=== PATIENT | male | born 1960 | race Caucasian/White ===

== ENCOUNTER 2017-01-02 08:10 | Inpatient (IN) | payer BC ==
[~2017-01-02 08:10] MED LIST: MORPHINE SULFATE 15 MG TABLET.SA PO PRN; ROPIVACAINE HCL/PF 100 MG, EPINEPHrine 0.2 MG, KETOROLAC TROMETHAMINE 30 MG in NORMAL S... IJ PRN; TRANEXAMIC ACID 1,000 MG in NORMAL SALINE 100 ML IV PRN; ceFAZolin SODIUM 1 GM VIAL IV PRN
[2017-01-02] MEDS: RINGER'S SOLUTION,LACTATED 1,000 ML IV PRN ×2 (08:30→19:32)
[2017-01-02] MEDS ORDERED: RINGER'S SOLUTION,LACTATED 1,000 ML IV ONE (10:55)
--- NOTE | 2017-01-02 10:58 | PREOP NOTE ---
Preoperative Progress Note - Preoperative Changes Changes to Preop Condition?: No Changes
[2017-01-02] MEDS ORDERED: ceFAZolin SODIUM 1 GM VIAL IV ONE (11:15)
--- NOTE | 2017-01-02 13:02 | POSTOP NO ---
Date of Surgery: 01/02/17 Anesthesia: Spinal, local Patient Tolerated the Procedure: Well Post Operative Diagnosis/Procedures: Crankshaft Straightener: Mingo Sapp PA-C Post-operative Diagnosis: Right hip degenerative joint disease Finding: Above Procedure: Right total hip arthroplasty Estimated Blood Loss: 100 ml Specimens: Bone for disposal
[2017-01-02] MEDS ORDERED: ZOLPIDEM TARTRATE 5 MG TABLET PO PRN (13:04)
[2017-01-02] MEDS ORDERED: ONDANSETRON HCL/PF 2 MG/ML VIAL IV PRN (13:04)
[2017-01-02] MEDS ORDERED: HYDROmorphone HCL 1 MG/ML DISP.SYRIN IV PRN (13:04)
[2017-01-02] MEDS ORDERED: DEXTROSE 5%-LACTATED RINGERS 1,000 ML IV PRN (13:04)
[2017-01-02] MEDS ORDERED: ACETAMINOPHEN 500 MG TABLET PO PRN (13:04)
[2017-01-02] MEDS ORDERED: MAGNESIUM HYDROXIDE 30 ML UDC PO PRN (13:04)
[2017-01-02] MEDS ORDERED: MAG HYDROX/ALUMINUM HYD/SIMETH 30 ML UDC PO PRN (13:04)
[2017-01-02] MEDS ORDERED: PROMETHAZINE HCL 5 MG in DEXTROSE 5 % IN WATER 50 ML IV PRN ×2 (13:04)
[2017-01-02] MEDS ORDERED: diphenhydrAMINE HCL 50 MG/ML VIAL IV PRN (13:04)
--- NOTE | 2017-01-02 13:04 | OR ---
Operative Report - Dictated Report Narrative: Date: 01/02/2017 Preoperative diagnosis: Right hip degenerative joint disease. Postoperative diagnosis: Right hip degenerative joint disease. Procedure: Right Total hip arthroplasty. Surgeon: Issac Meek M.D. Lan/Wan Engineer: Mingo Sapp PA-C Anesthesia: Spinal and local periarticular joint injection. Complications: None Specimens: Bone for disposal. Estimated blood loss: 100 milliliters. Retained implants: Depuy [place] size 5 femoral stem high offset. Size 58 millimeter ouside diameter 3-hole Comstock Gription acetabular cup. 58 millimeter outside by 40 millimeter inside diameter highly cross-linked acetabular liner. 40 millimeter diameter +12 millimeter cobalt chromium femoral head. Cancellous 6.5mm screw 30 millimeter length Indications: Mr. Graham is a 56-year-old gentleman who has had long-standing right hip pain and arthrosis. This patient was followed in my clinic for period of time with significant complaints of right hip pain consistent with arthritic changes. He failed conservative measures including but not limited to activity modification, passage of time, medications, and other conservative measures. Patient wished to proceed with surgical treatment. The risks, benefits, and alternatives were discussed in clinic. The risks of , blood clots, bleeding, infection, nerve/tendon blood vessel/ injury, malposition of components, dislocation and/or instability of joint, intraoperative fracture, postoperative limited range of motion, persistent pain, failure of components, and need for additional procedures. Patient wished to proceed. Consent was obtained after answering all questions. Procedure: After marking the correct extremity on the floor, the patient was taken to the operating room. A timeout was performed. IV antibiotics consisting of Ancef were administered prior to the procedure. A spinal anesthetic was induced by anesthesia. A Anaya catheter was inserted. The patient was then transitioned to a lateral position on a well-padded pegboard. An axillary roll was placed. The head was in neutral position. The non- operative down leg was well-padded with SCD and LYNETTE hose in place. The arms were supported and padded to protect from any undue pressure on the bony prominences and nerves. A well-padded anterior and posterior pelvic and chest posts were secured in order to maintain a stable position of the pelvis. This was placed so that the pelvis was perpendicular to the floor. The body was in line with the pelvis. Once it was felt that we had protected all the bony prominences and the patient was well secured with a safety belt as well, the leg was pre-scrubbed with alcohol, prepped and draped in a standard sterile fashion. A standard anterior lateral hip incision was marked out over the greater trochanter. Ioban drapes were then placed. The skin incision was then made. Sharp dissection with a scalpel utilizing cautery for hemostasis was carried out down to the gluteus and iliotibial band fascia. This was split in line with the skin incision. The greater trochanter bursa was excised. The anterior and posterior margins of the abductor tendon were identified. The anterior 1/2-1/3 of the tendon was tagged and reflected off the greater trochanter leaving a sleeve of tendon for repair at the completion of the case. This exposed the underlying hip joint capsule. A limb length stitch was placed in the skin and referencedd off a jimena on the greater trochanter for evaluation of intraoperative limb lengths. An inverted T-type capsulotomy was made extending this up to the brim of the acetabulum. Using Homans to assist with elevation of the soft tissues off the anterior, superior, and inferior aspects of the femoral neck, the hip was then placed in a figure 4 position and the femoral head was dislocated. With the leg in an externally rotated and adducted position, the cutting flag was utilized in order to jimena for a standard femoral neck cut approximately a fingerbreadth above the level of the lesser trochanter. This was done with reference to pre-operative films and overall alignment. This was done while protecting the surrounding soft tissues with Homans. The femoral head was then removed and sized for guidance on preparation of the acetabulum. It was noted that there was loss of articular cartilage on both the femoral head and weightbearing portions of the acetabulum. We then returned the leg to the table and turned our attention to the acetabulum. While protecting the surrounding soft tissues, the labrum and remaining tissue in the fovea were excised using a scalpel and cautery. A series of reamers up to size 58 millimeter were utilized to prepare the acetabulum. The final reamer had good purchase and exposed the bleeding subchondral bone. The acetabulum was then thoroughly irrigated ensuring that all bony and cartilaginous materials were removed, and the final acetabular shell was impacted into place. This was placed in approximately 45 degrees of abduction and 20 degrees of anteversion utilizing the outrigger and body axis for alignment. This had a good press fit. 1 6.5mm cancellous screw was placed in the superior posterior quadrant of the acetabulum. The shell was then thoroughly irrigated and the final polyethylene was impacted into place ensuring that it seated completely. This was then protected with a sponge while we returned our attention to the femur. With the leg in a figure 4 position, utilizing Homans for soft tissue protection , a box cutting osteotome, followed by Charnley awl, followed by serial reamers and broaches were utilized in order to prepare the femur. It was found that a size 5 broach gave good axial and rotational stability. The calcar reamer was utilized in order to clean up the cut edges. The proximal femur was visualized to ensure that there were no signs of fracture. A series of heads and necks were trialed. It was found that a high offset neck and a + 12 femoral head gave good overall stability. There was minimal longitudinal instability. With the leg in the position of sleep, the femoral head was well covered. Hip range of motion was able to reach full extension and external rotation to greater than 75 degrees prior to impingement along the posterior acetabulum. The hip was able to be flexed to greater than 90 degrees with internal rotation greater than 60 degrees prior to anterior impingement. The limb lengths were near equal based on comparison to the contralateral side and the prior placed limb length stitch. At this point it was felt these were the appropriately sized femoral components as well as neck and femoral head. The trial implants were removed. The femur was thoroughly irrigated. The final implants were impacted into place, and the hip was reduced. After ensuring that there was no damage to the proximal femur , the standard periarticular joint injection of ropivacaine, Toradol, and epinephrine were injected into the joint capsule and surrounding soft tissues. Anesthesia then administered intravenous tranexamic acid. The capsule was repaired with a single interrupted #1 Vicryl. The abductor tendon was repaired to the greater trochanter utilizing #5 Ethibond through drill holes. This was oversewn with #1 Vicryl. The fascia was closed with interrupted #1 Vicryl. The wounds were thoroughly irrigated as we closed in layers. The deep and subcutaneous fat layers were closed with 0 and 3-0 Vicryl respectively. The subcutaneous tissue was closed with a running 3-0 Vicryl and the skin with running 3-0 Monocryl subcutaneous and Prineo Dermabond dressing. All sponge, needle, blade, and instrument counts were correct prior to closing the wounds. Sterile dressings consisting of 4 x 4's, and tape were applied. The patient was awoken and transferred to her hospital bed and then to the postanesthesia care unit in stable condition. Postoperative condition: The plan is to admit to the medical/surgical inpatient floor postoperatively. There will be a projected 2 to 4 day hospital stay. Postoperatively 24 hours of IV antibiotics, pain control, physical therapy, occupational therapy, and medical comanagement will be utilized. Patient will be weightbearing as tolerated with anterior hip precautions. Postoperative films will be obtained in the recovery room.
[2017-01-02] MEDS ORDERED: CALCIUM CARBONATE 500 MG TAB.CHEW PO PRN (13:15)
[2017-01-02] MEDS: KETOROLAC TROMETHAMINE 15 MG/ML VIAL IV SCH ×2 (14:41→20:16)
[2017-01-02] MEDS: ceFAZolin SODIUM 1 GM in DEXTROSE 5 % IN WATER 100 ML IV SCH ×4 (17:45→23:10)
[2017-01-02] MEDS: oxyCODONE HCL/ACETAMINOPHEN 1 TAB TABLET PO PRN ×2 (18:14→23:09)
[2017-01-02] MEDS: SENNOSIDES/DOCUSATE SODIUM 1 TAB TABLET PO SCH (20:16)
[2017-01-02] MEDS: MORPHINE SULFATE 15 MG TABLET.SA PO SCH (20:16)
[2017-01-03] MEDS: oxyCODONE HCL/ACETAMINOPHEN 1 TAB TABLET PO PRN ×2 (03:03→18:45)
[2017-01-03] MEDS: KETOROLAC TROMETHAMINE 15 MG/ML VIAL IV SCH ×4 (03:03→22:00)
[2017-01-03] MEDS: ceFAZolin SODIUM 1 GM in DEXTROSE 5 % IN WATER 100 ML IV SCH ×2 (04:10)
[2017-01-03 05:57] LABS: Hematocrit 34.8 % (42.0-52.0); Hemoglobin 11.5 gm/dL (13.5-18.0); Mean Cell Volume 88.8 fl (78-100); Mean Corpuscular Hemoglobin 29.3 pg (27-31); Mean Platelet Volume 9.6 fl (6.0-9.5); Platelet Count 218 K/mm3 (150-450); Red Blood Count 3.92 M/mm3 (4.7-6.0); Red Cell Distribution Width 13.9 % (11.5-14.0); White Blood Count 6.6 K/mm3 (4.0-10.5)
[2017-01-03 06:15] LABS: Anion Gap 10.1 mmol/L (6.8-13.8); Calcium * 8.4 mg/dL (7.9-10.9); Estimated Creat Clear 91.6; Potassium 4.1 mmol/L (3.4-4.6)
--- NOTE | 2017-01-03 08:00 | PN ---
Subjective - Date and Time Seen Date: 01/03/17 Time: 07:58 Subjective Narrative: Pain controlled, no nausea, no SOB, no CP, no lightheadedness. No complaints. Objective Objective Narrative: Bandages C/D/I. N/V intact PF/DF ankle. Calf supple. - Vitals Vitals: Last Vital Signs Temp 37.1 C 01/03/17 03:45 Pulse 86 01/03/17 03:45 Resp 20 01/03/17 03:45 BP 105/62 01/03/17 03:45 Pulse Ox 94 01/03/17 03:45 - Abnormal Lab Findings Abnormal Lab Findings: Abnormal Lab Results 01/03/17 01/03/17 Range/Units 05:45 05:45 RBC 3.92 L (4.7-6.0) M/mm3 Hgb 11.5 L (13.5-18.0) gm/dL Hct 34.8 L (42.0-52.0) % MPV 9.6 H (6.0-9.5) fl Random Glucose 120 H (70-110) mg/dL - Exam Constitutional: Present: Alert, Oriented x3, Cooperative, No distress Cauti Physician Documentation - Urinary Catheter Management Urethral (Anaya) Date of Insertion: 01/02/17 Date of Removal: 01/03/17 Time of Removal: 07:15 Assessment/Plan - Problems/Diagnosis (1) Acute blood loss anemia Problem: Acute Narrative: Asymptomatic, recheck labs tomorrow am. (2) S/P total hip arthroplasty Problem: Acute Qualifiers: Narrative: PT, hip precautions, pain control, anticoagulation
[2017-01-03] MEDS: MORPHINE SULFATE 15 MG TABLET.SA PO SCH ×2 (08:44→22:11)
[2017-01-03] MEDS: ENOXAPARIN SODIUM 40 MG/0.4 ML SYRG SC SCH (11:36)
[2017-01-03] MEDS: SENNOSIDES/DOCUSATE SODIUM 1 TAB TABLET PO SCH (22:13)
[2017-01-04] MEDS: KETOROLAC TROMETHAMINE 15 MG/ML VIAL IV SCH ×2 (01:33→08:29)
[2017-01-04 06:07] LABS: Hematocrit 36.1 % (42.0-52.0); Hemoglobin 11.7 gm/dL (13.5-18.0); Mean Cell Volume 89.4 fl (78-100); Mean Corpuscular Hgb Conc 32.4 g/dl (32-36); Mean Platelet Volume 9.6 fl (6.0-9.5); Platelet Count 211 K/mm3 (150-450); Red Blood Count 4.04 M/mm3 (4.7-6.0); White Blood Count 6.5 K/mm3 (4.0-10.5)
[2017-01-04 06:16] LABS: Anion Gap 9.3 mmol/L (6.8-13.8); BUN/Creatinine Ratio 16.5 (9.0-21.6); Calcium * 8.6 mg/dL (7.9-10.9); Carbon Dioxide 30.7 mmol/L (24-32.6); Estimated Creat Clear 79.7
[2017-01-04] MEDS: MORPHINE SULFATE 15 MG TABLET.SA PO SCH (08:29)
[2017-01-04] MEDS: ENOXAPARIN SODIUM 40 MG/0.4 ML SYRG SC SCH (11:04)
[2017-01-04 15:18] VITALS: BP 109/66
--- NOTE | 2017-01-04 15:33 | DS ---
(1) S/P total hip arthroplasty Problem: Acute Qualifiers: Description of Stay: Hamilton is a 56 y/o male who is s/p total hip arthroplasty. His current hospital stay has been uncomplicated. He was checked in prior to surgery.Underwent right total hip arthroplasty. Since surgery he has progressed well preforming PT/OT, tolerating PO diet, and using oral pain medication for pain control. Pt has been stable, with no significant complications. Pt has continued to WBAT with walker. Pt is prepared to go home with walker, and do PT on an outpatient basis. He is refusing use of lovenox for DVT prophy, have discussed with patient and Dr. Meek the use of 325mg ASA twice daily. Pt will be discharged home, and f/u in 2 weeks in our outpatient orthopedic clinic. Procedures Performed: see notes below List Procedures: Right total hip arthroplasty Results and Findings: Laboratory Last Values WBC 6.5 K/mm3 (4.0-10.5) 01/04/17 06:00 RBC 4.04 M/mm3 (4.7-6.0) L 01/04/17 06:00 Hgb 11.7 gm/dL (13.5-18.0) L 01/04/17 06:00 Hct 36.1 % (42.0-52.0) L 01/04/17 06:00 MCV 89.4 fl (78-100) 01/04/17 06:00 MCH 29.0 pg (27-31) 01/04/17 06:00 MCHC 32.4 g/dl (32-36) 01/04/17 06:00 RDW 14.0 % (11.5-14.0) 01/04/17 06:00 Plt Count 211 K/mm3 (150-450) 01/04/17 06:00 MPV 9.6 fl (6.0-9.5) H 01/04/17 06:00 Sodium 139 mmol/L (132-142) 01/04/17 06:00 Plasma Sodium 139 mmol/L (130-142) 01/04/17 06:00 Potassium 4.0 mmol/L (3.4-4.6) 01/04/17 06:00 Chloride 103 mmol/L (97-106) 01/04/17 06:00 Carbon Dioxide 30.7 mmol/L (24-32.6) 01/04/17 06:00 Anion Gap 9.3 mmol/L (6.8-13.8) 01/04/17 06:00 BUN 19 mg/dL (6-23) 01/04/17 06:00 Creatinine 1.15 mg/dL (0.4-1.4) 01/04/17 06:00 Est GFR (Non-Af Amer) 70 mL/min (60-130) 01/04/17 06:00 BUN/Creatinine Ratio 16.5 (9.0-21.6) 01/04/17 06:00 Random Glucose 106 mg/dL (70-110) 01/04/17 06:00 Calcium 8.6 mg/dL (7.9-10.9) 01/04/17 06:00 Discharge Disposition: Home self care Disposition: Home self-care Condition: Good Discharge Activity: Activity as tolerated, Weight bearing Discharge Diet: General/regular food Print Language (Croatian or Somali Available): Croatian Additional Patient Instructions (free text): Follow up Physical Therapy on Saturday at 10:00am at [facility]. Follow-up in the office with Dr. Meek on 01/17/17 at 9:45am. Complete Home Medications List: Complete Home Medication List: Ibuprofen [Motrin] 400 mg PO PRN PRN 06/01/15 Acetaminophen [Tylenol] 650 mg PO PRN PRN 01/02/17 Calcium Carbonate [Tums] 500 mg PO PRN 01/02/17 Aspirin 325 mg PO BID 42 Days #100 tablet 01/04/17 oxyCODONE HCL/ACETAMINOPHEN [Percocet 5-325 mg Tablet] 1 each PO QID PRN 14 Days #60 tablet 01/04/17 Amb Orders for Discharge: PT Evaluation and Treatment Location: Determined By Patient
== END 2017-01-04 16:43 | disposition home or self-care (01) | DRG 470 ==
LOC: MS 08:10
PROVIDERS: ADMIT Orthopaedic Surgery; ATTEND Orthopaedic Surgery
PROC: 0SR90JZ Replacement of Right Hip Joint with Synthetic Substitute, Open Approach (ICD-10-PCS; principal; 2017-01-02 11:15)
DX: M16.0 Bilateral primary osteoarthritis of hip (principal)